=== PATIENT | male | born 1985 | race Caucasian/White ===

== ENCOUNTER 2023-09-14 22:31 | Emergency (ER) | payer OTHER ==
[2023-09-14] MEDS ORDERED: Ketorolac Tromethamine 30 MG/ML VIAL ONE (23:14)
== END 2023-09-15 06:50 | disposition home or self-care (01) ==
LOC: ERS 22:31
DX: S82.832A Other fracture of upper and lower end of left fibula, initial encounter for closed fracture (principal); W18.30XA Fall on same level, unspecified, initial encounter
CPT/HCPCS: 96374; J1885